=== PATIENT | male | born 1990 | race African-American/Black ===

== ENCOUNTER 2016-04-04 08:36 | Emergency (ER) | payer OTHER, BC ==
[~2016-04-04] VITALS: Ht 167.6 cm; Wt 96.0 kg
[~2016-04-04 08:36] MED LIST: AUGM875T PO; CIPR500T4 PO; ELVITAB
[2016-04-04 08:45] VITALS: BP 156/96; PULSE 84; RESP 18; TEMP 98.3; O2SAT 100
[2016-04-04] MEDS ORDERED: MORPHINE SULFATE 4 MG/ML INJ IV PUSH ONE (08:45)
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
[2016-04-04 08:48] VITALS: O2SAT 100
[2016-04-04 08:54] VITALS: BP 138/77; PULSE 94
[2016-04-04] MEDS: SODIUM CHLORIDE 0.9% FLUSH 5 ML FLUSH IVF PRN ×2 (09:01→11:30)
[2016-04-04 09:15] LABS: AUTOMATED NEUTROPHIL # 3.8 TH/MM3 (1.8-7.7); BASOPHIL # 0.1 TH/MM3 (0-0.2); BASOPHIL % 0.6 % (0.0-2.0); EOSINOPHIL # 0.1 TH/MM3 (0-0.4); EOSINOPHIL % 0.8 % (0.0-4.0); HEMATOCRIT 43.4 % (39.0-51.0); HEMO FLAGS DIFF FINAL; LYMPHOCYTE # 2.9 TH/MM3 (1.0-4.8); MEAN CELL VOLUME 89.8 FL (80.0-100.0); MEAN CORPUSCULAR HGB CONC 34.6 % (32.0-36.0); MONO % 11.9 % (0.0-8.0); NEUT % 49.7 % (16.0-70.0); PLATELET COUNT 310 TH/MM3 (150-450); RED BLOOD COUNT 4.83 MIL/MM3 (4.50-5.90); RED CELL DISTRIBUTION WIDTH 12.8 % (11.6-17.2); WHITE BLOOD COUNT 7.7 TH/MM3 (4.0-11.0)
--- NOTE | 2016-04-04 09:24 | RADRPT ---
EXAM DATE/TIME: 04/04/2016 09:19 [facility] COMPARISON: No previous studies available for comparison. INDICATIONS : Cough. MEDICAL HISTORY : None. SURGICAL HISTORY : None. ENCOUNTER: Initial ACUITY: 1 day PAIN SCORE: 0/10 LOCATION: Bilateral chest FINDINGS: A single view of the chest demonstrates the lungs to be symmetrically aerated without evidence of mas s, infiltrate or effusion. The cardiomediastinal contours are unremarkable. Osseous structures are intact. CONCLUSION: Normal examination. Cristian Jacques MD on April 04, 2016 at 9:22 Board Certified Radiologist. This report was verified electronically.
[2016-04-04 09:30] LABS: ANION GAP 10 MEQ/L (5-15); AST (GOT) 20 U/L (15-37); BICARBONATE 25.5 MEQ/L (21.0-32.0); BLOOD UREA NITROGEN 19 MG/DL (7-18); CHLORIDE 104 MEQ/L (98-107); GLOMERULAR FILTRATION RATE 88 ML/MIN (>89); POTASSIUM 3.8 MEQ/L (3.5-5.1); SODIUM (NA) 139 MEQ/L (136-145)
[2016-04-04 09:31] LABS: APTT (PATIENT) 29.2 SEC (24.3-30.1); PROTHROMBIN TIME - PATIENT 10.7 SEC (9.8-11.6)
[2016-04-04 09:33] LABS: ALKALINE PHOSPHATASE 81 U/L (45-117); ALT (GPT) 38 U/L (12-78); TOTAL BILIRUBIN ADULT 0.3 MG/DL (0.2-1.0)
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
[2016-04-04] MEDS ORDERED: IOHEXOL 350 MG/ML 10 ML VIAL (for RAD DIAG) IV ONE (10:51)
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
[2016-04-04 11:30] VITALS: BP 142/84; PULSE 81; RESP 17; O2SAT 99
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
[2016-04-04] MEDS ORDERED: ROBA500T PO (12:09)
[2016-04-04] MEDS ORDERED: TRAM50TA PO (12:09)
== END 2016-04-04 13:05 | disposition home or self-care (01) ==
LOC: NEPC 08:36
DX: M54.5 Low back pain (principal); I10 Essential (primary) hypertension; F17.210 Nicotine dependence, cigarettes, uncomplicated; V49.40XA Driver injured in collision with unspecified motor vehicles in traffic accident, initial encounter; Z21 Asymptomatic human immunodeficiency virus [HIV] infection status
CPT/HCPCS: 70450; 71010; 71260; 72125; 72128; 72131; 74177; 80053; 85025; 85610; 85730; 86850; 86900; 86901; 96374; 99284; J2270; Q9967